=== PATIENT | male | born 1995 | race Two or more races ===

== ENCOUNTER → 2023-09-10 10:20 | Outpatient (BNVA) | payer OTHER, SELFPAY | PROVIDERS: Visit Provider Physician Assistant | DX: S46.911A Strain of unspecified muscle, fascia and tendon at shoulder and upper arm level, right arm, initial encounter (principal); X50.0XXA Overexertion from strenuous movement or load, initial encounter | CPT/HCPCS: 99203 ==

== ENCOUNTER → 2023-09-24 12:01 | Outpatient (BNVA) | payer OTHER, SELFPAY | PROVIDERS: Visit Provider Physician Assistant Medical | DX: S46.911D Strain of unspecified muscle, fascia and tendon at shoulder and upper arm level, right arm, subsequent encounter (principal); X50.0XXD Overexertion from strenuous movement or load, subsequent encounter | CPT/HCPCS: 99213 ==

== ENCOUNTER → 2023-10-08 11:01 | Outpatient (BNVA) | payer OTHER, SELFPAY | PROVIDERS: Visit Provider Physician Assistant Medical | DX: M25.511 Pain in right shoulder (principal); M79.621 Pain in right upper arm | CPT/HCPCS: 99213 ==

== ENCOUNTER 2023-10-21 10:00 | Outpatient (RCR) | payer OTHER, SELFPAY ==
--- NOTE | 2023-09-17 11:01 | MHC.PT.EP ---
[facility] Mobile Office [place] Office [place] Office [address] Tessy Conley [address] [phone] F: [phone] F: [phone] F: [phone] F: [phone] Physical Therapy Plan of Care Date of Evaluation: 09/17/23 Date of Surgery: Diagnosis: R shoulder sprain/ strain Assessment: 28 y/o L-hand dominant male referred to PT with R shoulder sprain/strain. He injured shoulder while lifting ~40# into abduction/IR empty can on 08/21 while at work. S/s consistent with supraspinatus strain and ? labral pathology resulting in pain with lifting, sleeping on R shoulder, and reaching behind back secondary to painful arc flexion and abduction ROM, limited IR AROM, decreased R shoulder and scapular strength, pain with lifting onto overhead shelf, and pain. Recommend PT 2x/week for 6 weeks (pt can come 1x/week) to address impairments, implement HEP, and optimize functional mobility. 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 Manual therapy to restore motion and function. Therapeutic exercise to improve strength and flexibility. Neuromuscular re-education for posture and balance. Therapeutic activities to return to functional activities of daily living. Electronically signed by: Yesenia Calix PT Please sign and return to therapist. Thank you for your referral.
--- NOTE | 2023-11-19 08:31 | MHC.PT.DC ---
[facility] [place] Office [place] Office [place] Office [address] Tessy Conley [address] [phone] F: [phone] F: [phone] F: [phone] F: [phone] Physical Therapy Discharge Report Diagnosis: R shoulder sprain/ strain Date of Surgery: Date of Evaluation: 09/17/23 Date of Discharge: 11/19/23 Treatments to Date: 5 Cancellations to Date: 0 No Shows to Date: 0 Discharge Status: Improved Function Independent with HEP Discharge Summary: Pt reports feeling good and 80-85% better, however he will still get sore at the end of the work day but it is improving. SPADI improved from 24/130 to 7/130. He is I with HEP and appropriate for d/c at this time. Electronically signed by: Yesenia Calix PT Please sign and return to therapist. Thank you for your referral.
== END 2023-11-19 08:31 | disposition home or self-care (01) ==
LOC: HO.PT 10:00
PROVIDERS: Visit Provider Physician Assistant Medical
DX: S43.401D Unspecified sprain of right shoulder joint, subsequent encounter (principal)
CPT/HCPCS: 97110; 97161

== ENCOUNTER → 2023-11-05 09:46 | Outpatient (BNVA) | payer OTHER, SELFPAY | PROVIDERS: Visit Provider Physician Assistant Medical | DX: S46.911D Strain of unspecified muscle, fascia and tendon at shoulder and upper arm level, right arm, subsequent encounter (principal); X50.0XXD Overexertion from strenuous movement or load, subsequent encounter | CPT/HCPCS: 99213 ==